=== PATIENT | male | born 1970 | race Caucasian/White ===

== ENCOUNTER → 2024-02-05 08:11 | Outpatient (REF) | payer BC, SELFPAY | LOC: HWRAD 08:11 | PROVIDERS: ATTENDING PHYSICIAN Internal Medicine | DX: E66.01 Morbid (severe) obesity due to excess calories (principal); Z83.79 Family history of other diseases of the digestive system | CPT/HCPCS: 76700 ==

== ENCOUNTER → 2024-09-28 08:48 | Outpatient (REF) | payer BC, SELFPAY | LOC: DHSLP 08:48 | PROVIDERS: ATTENDING PHYSICIAN Internal Medicine | DX: G47.30 Sleep apnea, unspecified (principal); R06.83 Snoring | CPT/HCPCS: 95800 ==

== ENCOUNTER 2025-02-17 17:22 | Emergency (ER) | payer BC, SELFPAY ==
[2025-02-17 17:25] VITALS: BP 131/74
--- NOTE | 2025-02-17 17:57 | ED.GENMED ---
History of Present Illness
General
Chief Complaint: Head Injury
Source: patient
Exam Limitations: none
Time Seen by Provider: 02/17/25 17:49
Nursing documentation reviewed up to this point in time: agreed with
History of Present Illness
History of Present Illness:
54-year-old male with a past medical history of hypertension, hyperlipidemia, GERD who presents to the emergency department for evaluation after fall with head strike. Patient reports that he was running yesterday at leg landed awkwardly and gave
out on him and he fell towards the left side. He did strike his head on the ground. He did not pass out. He sustained minor abrasions to the left knee and left forehead and has some bruising around his left eye. He had mild headache but no other
acute issues. Denies any neck pain, back pain, rib pain, pain in the extremities. No change in his vision or speech, focal weakness or numbness or any other acute issues. He is not on any blood thinners. He had a routine colonoscopy today and
was apparently told by anesthesiologist that he should be evaluated after his head trauma with concern for brain bleeding which prompted ED visit.
Past History
Past History
ED Past Medical History: GERD, HTN, Hypercholesterolemia, Hypothyroidism, Psychiatric (ADHD, Depresion) and Other (Neuropathy )
ED Past Surgical History: None
Social History
Tobacco: Non-smoker
Alcohol: Occasional
Personal:
Living: with family
Employment: Employed
Family History
Family History: Diabetes and Cancer (Pancreatic cancer and lung cancer); Negative Hypertension, Early CAD or Asthma
Review of Systems
Review of Systems
All Other Systems: ROS reviewed and negative except as documented in HPI and ROS
Respiratory: Denies trouble breathing
Cardiac: Denies chest pain
ABD/GI: Denies abdominal pain, nausea or vomiting
: Denies flank pain
Musculoskeletal: Denies neck pain or back pain
Neurological: Reports headache; Denies dizzy
Phy Exam
Physical Exam
Physical Exam:
General: Awake, alert, oriented x3 with a GCS of 15; no acute distress
Head: Normocephalic, patient has left periorbital swelling and ecchymosis
Eyes: Conjunctiva normal, EOMI, pupils equal round and reactive to light bilaterally
Throat: Airway intact, handling secretions
Neck: Trachea midline, no cervical spine tenderness, full range of motion without pain
Back: No tenderness of the thoracic or lumbar spine
Lungs: Breathing comfortably with no distress
Heart: Regular rate; no chest wall tenderness
Abd: Soft, non distended, nontender
Neuro: Cranial nerves intact, speech fluid, motor and sensory intact all extremities
Skin: Minor abrasion of the left forehead, minor abrasion of the left knee
Extremities: Minor abrasion to the left knee but no other signs of acute trauma to extremities, no tenderness in extremities and moving all extremities freely without pain
Scores
Heart Failure Risk
Heart Failure Risk Score: Not Applicable
Heart Score for Chest Pain Patients
STEMI patient?: Not applicable
Withdrawal Assessment of Alcohol
Withdrawal Assessment Completed?: Not applicable
Course
Orders/Labs/Results
Orders:
Orders
02/17/25 17:56
CT Facial Bones W/o Iv Contras Urgent
Comment:
Reason For Exam: bruising, swelling L eye s/p fall
CT Head W/o Iv Contrast Urgent
Comment:
Reason For Exam: fall with head strike, headache
Vital Signs
Initial and Last Documented VS:
Initial Vital Signs
Temp Pulse Resp BP Pulse Ox
36.6 C 79 18 131/74 95
02/17/25 17:25 02/17/25 17:25 02/17/25 17:25 02/17/25 17:02/17/25 17:25
Last Documented Vital Signs
Temp Pulse Resp BP Pulse Ox
36.6 C 79 18 131/74 95
02/17/25 17:25 02/17/25 17:25 02/17/25 17:25 02/17/25 17:25 02/17/25 17:57
MDM/Problems Addressed
Differential Diagnosis Includes:
Subdural hemorrhage, subarachnoid hemorrhage, epidural hemorrhage, concussion, facial fracture
MDM/Problems Addressed:
54-year-old male presents for evaluation after fall with head strike as described above. Not on blood thinners. He was told by reportedly anesthesiologist prior to routine colonoscopy today that he should be evaluated with CT scan. Vitals and
exam as above�normal neurologic assessment today. Very low clinical suspicion for clinically significant intracranial pathology but will check CT head and facial bones in an abundance of caution.
CT head negative for any acute pathology, CT facial bones no acute fracture. Patient remains awake and alert with a GCS of 15, vital signs stable. Stable for discharge. Spoke about follow-up plan and return precautions. All questions answered.
*Radiology
Radiology exam reviewed: radiology read reviewed
*Pulse Oximetry
SaO2: 95
Oxygen Mode of Delivery: Room air
Patient hypoxic: no (95%)
*Critical Care Note
Total Time (30-74mins, 75-104mins- exclusive of procedures): Not Applicable
Data Reviewed
Source: patient
ED Attending Note
-
Portions of this chart may have been created with voice recognition software.� Occasional wrong word or��sound alike� substitutions may have occurred due to the inherent limitations of voice recognition software.
Discharge Plan
Departure
Patient Disposition: Home (Routine Discharge)
Date of Disposition: 02/17/25
Time of Disposition: 20:24
Patient with high blood pressure during this ER visit?: No
Discharge Problem:
Abrasion of face, Contusion of face
Instructions: Head Injury in Adults (DC)
Prescriptions:
No Action
atorvastatin 10 MG tablet
10 mg PO MOWEFR
aspirin 81 MG tablet,delayed release (DR/EC)
81 mg PO DAILY
levothyroxine 25 MCG tablet
25 mcg PO DAILY
alfuzosin [Uroxatral] 10 MG tablet extended release 24 hr
10 mg PO DAILY
lisdexamfetamine [Vyvanse] 70 MG capsule
70 mg PO DAILY
fenofibric acid (choline) [Trilipix] 135 MG capsule,delayed release(DR/EC)
135 mg PO SUTUWETHSA
Fish Oil
DAILY
Lamictal
DAILY
Multiple Vitamins
DAILY
cephalexin 500 MG capsule
500 mg PO BID Qty: 19 0RF
Activity Restrictions/Additional Instructions:
Thank you for visiting the Emergency Department at [facility].
1. Please schedule a follow up appointment as directed. Call first thing tomorrow morning to make an appointment.
2. If indicated, please take your medications as instructed and indicated on discharge paperwork.
3. If any of your symptoms do not improve, or persist, or become more severe within 6-12 hours, please return to the emergency department for further care.
4. Please return to the emergency department if you develop a headache, neck pain/stiffness, fever greater than 100.4F, chest pain, shortness of breath, persistent nausea, vomiting, slurred speech, difficulty walking, numbness/tingling, weakness,
signs of infection or any other symptoms that are worrisome to you.
Please call [phone] if you have any questions.
Interventions
Interventions:
*Risk Screen - Suicide Last Done: 02/17/25 17:25
*General Assessment Last Done: 02/17/25 17:25
*Neglect/Abuse Screening Last Done: 02/17/25 17:25
*ED- Fall Risk Assessment Last Done: 02/17/25 17:25
*ED COVID-19 Vaccine History Last Done: 02/17/25 18:36
ED- Neurological Assessment Last Done: 02/17/25 18:36
ED-Skin Assessment Last Done: 02/17/25 18:36
Discharge Date and Time
Print Language: NEPALI
[2025-02-17 18:36] VITALS: BMI 37.5
== END 2025-02-17 20:29 | disposition home or self-care (01) ==
LOC: EMR 17:22
PROVIDERS: EMERGENCY PHYSICIAN Emergency Medicine; FAMILY PHYSICIAN Internal Medicine
DX: S00.12XA Contusion of left eyelid and periocular area, initial encounter (principal); S00.81XA Abrasion of other part of head, initial encounter; S80.212A Abrasion, left knee, initial encounter; G44.309 Post-traumatic headache, unspecified, not intractable; W18.39XA Other fall on same level, initial encounter; Y93.02 Activity, running; I10 Essential (primary) hypertension; E78.00 Pure hypercholesterolemia, unspecified; E03.9 Hypothyroidism, unspecified; F90.9 Attention-deficit hyperactivity disorder, unspecified type; K21.9 Gastro-esophageal reflux disease without esophagitis; G62.9 Polyneuropathy, unspecified; F32.A Depression, unspecified; Z98.890 Other specified postprocedural states; Z79.82 Long term (current) use of aspirin
CPT/HCPCS: 99284; 70450; 70486